=== PATIENT | female | born 1930 | race Caucasian/White ===

== ENCOUNTER → 2018-11-27 | Outpatient (CLI) | payer MEDICARE, OTHER ==
[~2018-11-27] MED LIST: ASPIRIN81 M1 PO; CALCIUM 600 +1 EAC7 PO; METOPROL PO; VITAMIN D-32000 UNI1 PO
[2018-11-27 09:45] VITALS: BP 134/43
== END | disposition home or self-care (01) ==
LOC: INJECTION 09:25
DX: M81.0 Age-related osteoporosis without current pathological fracture (principal); I10 Essential (primary) hypertension; Z87.891 Personal history of nicotine dependence

== ENCOUNTER → 2018-12-02 | Outpatient (CLI) | payer MEDICARE, OTHER | END | disposition home or self-care (01) | LOC: ORTHO 02:10 | DX: S42.295D Other nondisplaced fracture of upper end of left humerus, subsequent encounter for fracture with routine healing (principal); X58.XXXD Exposure to other specified factors, subsequent encounter ==

== ENCOUNTER → 2019-02-12 | Outpatient (CLI) | payer MEDICARE, OTHER | END | disposition home or self-care (01) | LOC: ORTHO 01:34 | DX: S42.295D Other nondisplaced fracture of upper end of left humerus, subsequent encounter for fracture with routine healing (principal); X58.XXXD Exposure to other specified factors, subsequent encounter ==

== ENCOUNTER → 2019-04-21 | Outpatient (CLI) | payer MEDICARE, OTHER ==
[~2019-04-21] MED LIST changes: +NORVASC5 MG PO; +PROLIA60 MG/M1 SC; +TOPROL XL50 M1 PO
== END | disposition home or self-care (01) ==
LOC: ORTHO 02:35
DX: S42.295D Other nondisplaced fracture of upper end of left humerus, subsequent encounter for fracture with routine healing (principal); X58.XXXD Exposure to other specified factors, subsequent encounter

== ENCOUNTER → 2019-06-03 | Outpatient (CLI) | payer MEDICARE, OTHER ==
[2019-06-03 10:50] VITALS: BP 165/49
== END | disposition home or self-care (01) ==
LOC: INJECTION 10:27
DX: M81.0 Age-related osteoporosis without current pathological fracture (principal)

== ENCOUNTER 2019-08-03 11:27 | Inpatient (IN) | payer MEDICARE, OTHER ==
[~2019-08-03] VITALS: Ht 160 cm; Wt 47.7 kg
[2019-08-03 11:34] VITALS: BP 165/67
[2019-08-03 12:18] LABS: EOS % 0.1 % (1.0-4.0); HEMATOCRIT 40.8 % (37.0-47.0); HEMOGLOBIN 12.6 g/dl (12.0-16.0); LYMPH # 2.3 10*3/uL (1.3-4.4); LYMPH % 23.1 % (27.0-41.0); MEAN CELL VOLUME 82.1 fl (81.0-99.0); MEAN CORPUSCULAR HGB 25.4 pg (27.0-31.0); MEAN CORPUSCULAR HGB CONC 30.9 g/dl (33.0-37.0); MEAN PLATELET VOLUME 9.2 fl (9.6-12.3); MONO # 0.9 10*3/uL (0.1-1.0); MONO % 9.2 % (3.0-9.0); NEUT # 6.6 10*3/uL (2.3-7.9); NEUT % 67.2 % (47.0-73.0); PLATELET COUNT AUTOMATED 305 10*3/uL (130-400); RED BLOOD COUNT 4.97 10*6/uL (4.10-5.10); RED CELL DISTRI WIDTH 13.9 % (0-14.5); WHITE BLOOD COUNT 9.9 10*3/uL (4.8-10.8)
[2019-08-03 12:29] LABS: ACT PARTIAL THROMBO TIME 22.5 SECONDS (20.0-32.1)
[2019-08-03 12:35] LABS: ALBUMIN 3.3 gm/dl (3.1-4.5); ALKALINE PHOSPHATASE 34 U/L (45-117); BUN 27 mg/dl (7-24); CHLORIDE 101 mmol/L (98-107); CREATININE 1.09 mg/dL (0.55-1.02); POTASSIUM 3.4 mmol/L (3.5-5.1); SGOT/AST 20 IU/L (3-35); SGPT/ALT 17 U/L (12-78); SODIUM 137 mmol/L (136-145)
[2019-08-03 12:36] LABS: LIPASE 402 U/L (73-393)
[2019-08-03 12:37] LABS: TROPONIN I < 0.015 ng/ml (<0.045)
--- NOTE | 2019-08-03 12:40 | NUR ---
pt resting in bed family in room voices no complaints call light in reach
[2019-08-03 13:00] LABS: BILIRUBIN NEGATIVE (NEGATIVE); BLOOD NEGATIVE (NEGATIVE); CLARITY CLEAR (CLEAR); COLOR YELLOW (YELLOW); GLUCOSE NEGATIVE (NEGATIVE); KETONE NEGATIVE (NEGATIVE); LEUKO ESTERASE NEGATIVE (NEGATIVE); NITRITE NEGATIVE (NEGATIVE); SPECIFIC GRAVITY <= 1.005 (1.005-1.030); UROBILINOGEN 0.2 E.U./dl (0.2-1.0)
[2019-08-03 13:11] LABS: EPITHELIAL CELLS 0-2; WBC 0-2 wbc/hpf (0-5)
--- NOTE | 2019-08-03 13:12 | NUR ---
pt assisted to bedside commode without difficulty back to bed side rails up family in room call light in reach
[2019-08-03 13:13] VITALS: BP 133/60
[2019-08-03 14:02] VITALS: BP 133/60
--- NOTE | 2019-08-03 14:06 | NUR ---
pt assisted to bedside commode again without difficulty voices no complaints call light in reach family in room
--- NOTE | 2019-08-03 15:47 | NUR ---
PT TO CT SCAN FAMILY IN ROOM
[2019-08-03 15:49] VITALS: BP 145/61
[2019-08-03 16:31] VITALS: BP 155/56
[2019-08-03] MEDS ORDERED: METOPROLOL TAR100 M1 PO (16:52)
[2019-08-03] MEDS ORDERED: GUMMI BEAR MUL1 EACH PO (16:54)
[2019-08-03] MEDS ORDERED: MURO-128 30 ML30 ML OP (16:55)
[2019-08-03] MEDS ORDERED: XALATAN 2.5 ML2.5 ML OP (16:55)
--- NOTE | 2019-08-03 17:09 | NUR ---
NOTIFIED JAKE DAY OF [facility]. SAID OK.
--- NOTE | 2019-08-03 18:00 | NUR ---
MED REC UPDATED VIA LIST FROM HOME.
--- NOTE | 2019-08-03 18:03 | NUR ---
A 88, admitted to 5E, under the services of JUAN JOSÉ Montiel DO with a diagnosis of DEHYDRATION, NEAR SYNCOPE, GENERALIZED WEAKNESS. Chief complaint is SYNCOPAL EPISODE. Patient arrived via ambulance from ER. Monitor applied. Initial assessment completed. Vital signs taken and recorded. JUAN JOSÉ MONTIEL DO notified of admission to the unit. Orders received. See assessment for past medical history, medications and allergies. Patient and/or family oriented to unit. [facility] visitation policy reviewed. Clothing/patient valuable form completed. KAYY HURTADO
[2019-08-03 20:00] VITALS: BP 113/60
--- NOTE | 2019-08-03 20:00 | NUR ---
RESTING IN BED WITH HOB SLIGHTLY ELEVATED. SKIN PALE, WARM & DRY. PT. IS VERY [place]. IV FLUIDS INFUSING ORDERED. PT. VOICES NO C/O AT THIS TIME; NO DISTRESS NOTED. CALL LIGHT WITHIN REACH. FAMILY PRESENT IN ROOM.
--- NOTE | 2019-08-03 20:00 | NUR ---
RESTING IN BED WIHT HOB ELEVATED. IV FLUIDS INFUSING INTO LEFT ANTECUBITAL WITHOUT DIFFICULTY; SITE ASYMPTOMATIC. PT. VISITING WITH FAMILY. VOICES NO C/O AT THIS TIME. CALL LIGHT WITHIN REACH.
--- NOTE | 2019-08-03 20:08 | NUR ---
NOTIFIED OF NEW CONSULT. SAID HE WOULD BE IN TO SEE THE PT IN THE AM.
[2019-08-04] VITALS: BP 95/40
--- NOTE | 2019-08-04 04:15 | NUR ---
ASSISTANCE OF 1 UP TO BATHROOM & USE OF CANE. TOLERATED WELL. OBTAINED URINE SPECIMENS AT THIS TIME.
[2019-08-04 06:09] LABS: BASO % 0.1 % (0.0-1.0); EOS # 0.1 10*3/uL (0.0-0.4); EOS % 1.9 % (1.0-4.0); HEMATOCRIT 37.8 % (37.0-47.0); HEMOGLOBIN 11.2 g/dl (12.0-16.0); LYMPH % 27.7 % (27.0-41.0); MEAN CORPUSCULAR HGB 24.9 pg (27.0-31.0); MEAN CORPUSCULAR HGB CONC 29.6 g/dl (33.0-37.0); MEAN PLATELET VOLUME 9.3 fl (9.6-12.3); MONO # 0.5 10*3/uL (0.1-1.0); MONO % 6.9 % (3.0-9.0); NEUT # 4.6 10*3/uL (2.3-7.9); NEUT % 62.9 % (47.0-73.0); PLATELET COUNT AUTOMATED 252 10*3/uL (130-400); WHITE BLOOD COUNT 7.4 10*3/uL (4.8-10.8)
[2019-08-04 06:13] LABS: ALBUMIN 2.6 gm/dl (3.1-4.5); BUN 23 mg/dl (7-24); CHLORIDE 110 mmol/L (98-107); CHOLESTEROL 146 mg/dL (<200); CREATININE 0.97 mg/dL (0.55-1.02); HDL CHOLESTEROL 43 mg/dl (40-60); LDL CHOLESTEROL 84 mg/dL (9-159); PHOSPHOROUS 1.6 mg/dL (2.5-4.9); POTASSIUM 3.4 mmol/L (3.5-5.1); SGOT/AST 19 IU/L (3-35); SGPT/ALT 13 U/L (12-78); SODIUM 144 mmol/L (136-145); TOTAL PROTEIN 6.3 gm/dL (6.4-8.2); TRIGLYCERIDES 95 mg/dl (<150); VLDL CHOLESTEROL 19 mg/dL (6-40)
[2019-08-04 06:19] LABS: ALKALINE PHOSPHATASE 30 U/L (45-117)
[2019-08-04 07:45] LABS: VITAMIN D, 25-HYDROXY 58.9 ng/mL (30-100)
[2019-08-04 08:00] VITALS: BP 100/48
--- NOTE | 2019-08-04 08:00 | NUR ---
PHYSICAL THERAPY Screen received as well as orders for PT will follow, thank you Karyn Lerma PT
--- NOTE | 2019-08-04 08:17 | NUR ---
Nursing screen and Occupational Therapy referral received. Thank you. Samia Singh OTR/L
[2019-08-04 12:00] VITALS: BP 105/42
--- NOTE | 2019-08-04 13:07 | NUR ---
Boiler Tester in to talk to patient. Patient states lives at HOME with ALONE. There are FEW steps in the home. Physician: DEIDRE [facility]acy: [facility] Home health services: NONE Patient's level of ADLs: INDEPENDENT Patient has working utilities: YES DME: NONE Follow-up physician's appointment after d/c: WILL BE MADE BY [facility] WHEEL TRUING MACHINE TENDER ON DISCHARGE Does patient want to access PORTAL?: NO Discharge plan VISITED WITH PT AND DAUGHTER, PER BOTH PT IS VERY INDEPENDENT IN HER CARE. TALKED WITH THEM ABOUT HOME HEALTH BUT BOTH STATE THEY ARE FINE AT HOME AND WILL HAVE NO NEEDS. PLANS TO RETURN HOME WHEN MEDICALLY STABLE. WILL CONTINUE TO FOLLOW. WILL HAVE A RIDE HOME PER DAUGHTER.. SUZIE HORN
--- NOTE | 2019-08-04 15:39 | NUR ---
PT INSTRUCTED ON FLUTTER. PT TOLERATED WELL. PT CAN DO ON HER OWN
[2019-08-04 16:00] VITALS: BP 118/40
[2019-08-04 20:00] VITALS: BP 111/40
[2019-08-05] VITALS: BP 135/55
--- NOTE | 2019-08-05 00:10 | NUR ---
ASSISTED PATIENT TO BATHROOM AT THIS TIME AT HER REQUEST, PATIENT AMBULATED WELL WITH CANE. PATIENT ASSISTED BACK TO BED WITHOUT INCIDENT. PATIENT DENIES ANY CHEST PAIN, SHORTNESS OF BREATH OR OTHER DISTRESS AT THIS TIME. CALL LIGHT USE REVIEWED WITH PATIENT AT THIS TIME. CALL LIGHT WITHIN REACH, WILL CONTINUE TO MONITOR.
--- NOTE | 2019-08-05 02:20 | NUR ---
PATIENT RESTING IN BED IN A POSITION OF COMFORT, WITH EYES CLOSED, RESPIRATIONS EASY AND NON-LABORED AT THIS TIME. CALL LIGHT WITHIN REACH, WILL CONTINUE TO MONITOR.
--- NOTE | 2019-08-05 07:10 | NUR ---
ARRIVED ON SHIFT, INTRODUCED TO PATIENT, NO NEEDS VOICED WHITE BOARD UPDATED.
[2019-08-05 07:24] LABS: ALBUMIN 2.7 gm/dl (3.1-4.5); BUN 23 mg/dl (7-24); CHLORIDE 110 mmol/L (98-107); CREATININE 0.91 mg/dL (0.55-1.02); PHOSPHOROUS 1.9 mg/dL (2.5-4.9); POTASSIUM 3.5 mmol/L (3.5-5.1); SGOT/AST 21 IU/L (3-35); SGPT/ALT 13 U/L (12-78); SODIUM 144 mmol/L (136-145)
[2019-08-05 07:26] LABS: ALKALINE PHOSPHATASE 29 U/L (45-117); TOTAL PROTEIN 6.4 gm/dL (6.4-8.2)
[2019-08-05 08:00] VITALS: BP 142/68
--- NOTE | 2019-08-05 08:45 | NUR ---
Occupational therapy orders received and OT evaluation completed in full on floor five. Patient precautions include fall risk, ww use, and weakness. Per OT evaluation, OT recommends home with daughter with HH SN, OT, and PT with supervision. Patient would benefit from continued OT treatment to maximize strength and independence with ADLs, mobility, and transfers. Patient complexity is low, [address]. Thank you for the referral. Quiana Hardy, OTR/L
--- NOTE | 2019-08-05 09:15 | NUR ---
DR BOLDEN ROUNDED AND SEEN PT. CLEARED PT FOR D/C. NOTIFIED CASE MGMT OF DAUGHTER'S REQUEST TO DISCUSS HOME HEALTH CARE.
--- NOTE | 2019-08-05 09:39 | NUR ---
PT UP TO SHOWER WITH DAUGHTER TO ASSIST. LINEN CHANGE PROVIDED. VOICES NO OTHER NEEDS AT THIS TIME. CALL LIGHT IN REACH.
--- NOTE | 2019-08-05 09:59 | NUR ---
PHYSICAL THERAPY Addy completed moderate level of complexity [address] would recomend SNF as pt lives alone however dtgr at the bedside and pt will go home w where she will have 24 hour care as family home t/o the day recommend f/u HH at home and FWW for ambulation. Discussed with dgtr possible first floor set and assisting pt with FWW and home safety with AD spoke to CM reg need for FWW for home. PT to work on transfers,amb with AD, balance/safety, stairs Karyn Lerma PT
--- NOTE | 2019-08-05 10:33 | NUR ---
CONTINUITY EDITOR spoke with the patients daughter about getting a home health company in [place], [place]. CONTINUITY EDITOR explained that [facility] will go to [place]. Patients daughter was agreeable. CONTINUITY EDITOR will fax referral to [facility]. CONTINUITY EDITOR also spoke to the patients daughter about a front wheeled walker. CONTINUITY EDITOR explained to order a FWW it would be approximately 7-10days to come in. CONTINUITY EDITOR provided the daughter with additional avenues to obtain on ([employer]). Patients daughter understood. Patients daughter also stated that she believes there may be on at the house, but she is not sure. CONTINUITY EDITOR will notify [employer]. -VIELKA Hassan
--- NOTE | 2019-08-05 10:49 | NUR ---
DR GALDAMEZ ROUNDED. ORTHOS OBTAINED. PT ASYMPTOMATIC AT THIS TIME.PT TOLERATED WELL. CALL LIGHT IN REACH.
[2019-08-05 12:00] VITALS: BP 136/58
--- NOTE | 2019-08-05 13:45 | NUR ---
PHYSICAL THERAPY Patient seen this pm 1:1 for therapy visit and was sitting up in bedside chair with several family members present upon therapist arrival. Patient identified by name / and was very pleasant this afternoon. Patient transfers sit to stand from low chair surface, SBA and ambulates with use of wh walker, 50'x 1, SBA, demonstrating Good upright posture, slow steady gait pattern and no LOB. Patient was a little cautious during 90/180 turns and returned to bedside chair with mild fatigue. Following brief seated rest break, patient completed several additional sit to stand transfers, SBA, needing v/c for proper hand placement. Patient tolerated eyes open closed balance ex, demonstrating LOB x 1 on intial trial, then Fair+ balance x2 additional trials. Patient returned to and remained in bedside chair with call light and telephone. Will continue per POC as tolerated, total treatment time 16 minutes. Cale Ryan, STEEL DIE PRINTER
--- NOTE | 2019-08-05 13:51 | NUR ---
OT NOTE Pt was seen this P.M. 1:1 for 15 minute OT session. Upon arrival pt was sitting upright in the recliner. Pt identified by name and and had no complaints at this time. Sit to stand completed from chair level with SBA and use of w/w for UE support. Functional mobility was then completed to the bathroom with SBA and use of w/w, there she transferred on/off standard commode with supervision. Clothing management completed with SBA. Pt then stood sink side while washing her hands with SBA. Pt was left sitting upright in the recliner with call light in hand, tray table in place, and family at bedside. Continue with rec D/C plan to home with home health. SAUL Monaco/Godfrey
--- NOTE | 2019-08-05 15:45 | NUR ---
PATIENT ARRIVED FROM 5TH FLOOR, INTRODUCED TO PATIENT, NO NEEDS VOICED AT THIS TIME, WHITE BOARD UPDATED.
[2019-08-05 16:00] VITALS: BP 129/46
[2019-08-05 20:00] VITALS: BP 113/48
[2019-08-05 21:00] VITALS: BP 110/50
--- NOTE | 2019-08-05 21:19 | NUR ---
SPOKE WITH DR ROBERTSON REGARDING PT NIGHT TIME DOSE OF LOPRESSOR. PTS BP WAS 110/50 MANUALLY WITH AN APICAL PULSE OF 85. STATES TO GO AHEAD AND GIVE THE LOSPRESSOR ORDERED. WILL MONITOR.
[2019-08-06] VITALS: BP 115/66
--- NOTE | 2019-08-06 01:25 | NUR ---
24 HOUR CHART CHECK COMPLETE.
[2019-08-06 06:51] LABS: BUN 17 mg/dl (7-24); CHLORIDE 111 mmol/L (98-107); CREATININE 0.81 mg/dL (0.55-1.02); POTASSIUM 3.7 mmol/L (3.5-5.1); SODIUM 146 mmol/L (136-145)
--- NOTE | 2019-08-06 07:56 | NUR ---
OCCUPATIONAL THERAPY CO-SIGN I approve of the Occupational Therapy notes written above. Quiana Hardy, OTR/L
[2019-08-06 08:00] VITALS: BP 146/55
--- NOTE | 2019-08-06 09:10 | NUR ---
OT NOTE Pt was seen this A.M. 1:1 for 15 minute OT session. Upon arrival pt was supine in bed. Pt identified by name and and had complaints of feeling fatigued and "not right." Pt transferred supine to sit EOB with SBA. Sit to stand completed from bed level with CGA and use of w/w for UE support. Functional mobility was then completed to the bathroom with CGA and use of w/w for UE support. There she transferred on/off standard commode with SBA and use of grab bar for UE support. Clothing management completed with CGA for safety and toilet hygiene completed with supervision while seated. Pt then stood sink side while washing her hands with CGA for safety. Throughout pt required verbal prompts for walker safety due to walking away without it and poor turning safety. Pt presented with poor carry over. Pt requested to lay down at this time due to fatigue. Pt transferred back into bed sit to supine with SBA and was repositioned in bed with modA X 2. There she was left with call light in hand, tray table in place, and phone in reach. Continue with rec D/C plan to home with home health. SAUL Monaco/Godfrey
[2019-08-06] MEDS ORDERED: DONEPEZIL HYDROC5 MG PO (09:11)
[2019-08-06] MEDS ORDERED: VIBRAMYCIN100 MG PO (09:44)
[2019-08-06] MEDS ORDERED: PREDNISONE10 MG PO (09:44)
--- NOTE | 2019-08-06 09:58 | NUR ---
PHYSICAL THERAPY TREATMENT TIME: 8:55 AM - 09:07 AM Patient presented to therapy in supine wit hreport of feeling tired and feeling like she is lite-headed. Patient says the Nurse knows about her not feeling well. Patient gives informed consent for treatment. Patient was identified by name and of wristband. Patient performed supine to sitting at EOB transfer with SBA. Patient performed sit to stand from EOB with SBA. Patient ambulated with Wheeled Walker and CGA X 1 for 50' x 1 with no LOB and only complaint being fatigue. Patient declined further therapy this morning saying she was too lite-headed. Patient transferrred back to supine in bed with SBA. Patient was left in supine in bed with head of bed elevated, call light within reach and bed alarm activated. Patient was 1:1 with this [employer] for 12 minutes total. JUSTUS GARCIA [employer]
--- NOTE | 2019-08-06 10:39 | NUR ---
Discharge instructions reviewed with patient/family. Patient receptive and verbalizes understanding. Follow-up care arranged. Written instructions given to patient/family. JEFFREY NICHOLSON
--- NOTE | 2019-08-06 13:30 | NUR ---
OCCUPATIONAL THERAPY CO-SIGN I approve of the Occupational Therapy notes written above. Quiana Hardy, OTR/L
--- NOTE | 2019-08-09 07:38 | NUR ---
PHYSICAL THERAPY CO-SIGN I approve of the Physical Therapy notes written above. Karyn Lerma PT
== END 2019-08-06 10:39 | disposition home health service (06) | DRG 640 ==
LOC: ED 11:27 → 5E 15:39 → EDHOLD 15:39 → 5E 16:21 → 4E 08-05 15:16
PROVIDERS: Emergency Medicine; Internal Medicine; Registered Nurse; ADMIT Family Medicine
DX: E86.0 Dehydration (principal); N17.0 Acute kidney failure with tubular necrosis; J45.901 Unspecified asthma with (acute) exacerbation; E44.0 Moderate protein-calorie malnutrition; Z68.1 Body mass index [BMI] 19.9 or less, adult; B37.0 Candidal stomatitis; Z66 Do not resuscitate; Z51.5 Encounter for palliative care; J44.9 Chronic obstructive pulmonary disease, unspecified; I95.1 Orthostatic hypotension; N18.3 Chronic kidney disease, stage 3 (moderate); I12.9 Hypertensive chronic kidney disease with stage 1 through stage 4 chronic kidney disease, or unspecified chronic kidney disease; E87.6 Hypokalemia; R00.0 Tachycardia, unspecified; T50.995A Adverse effect of other drugs, medicaments and biological substances, initial encounter; Y92.89 Other specified places as the place of occurrence of the external cause; Z79.899 Other long term (current) drug therapy; Z90.49 Acquired absence of other specified parts of digestive tract; Z79.82 Long term (current) use of aspirin